=== PATIENT | male | born 1985 | race Two or more races ===

== ENCOUNTER 2025-04-11 17:09 | Emergency (ER) | payer MEDICAID ==
[~2025-04-11] VITALS: Ht 175.3 cm; Wt 81.6 kg
[2025-04-11 17:10] VITALS: BP 106/57; TEMP 98.6
[2025-04-11] MEDS ORDERED: AMOX500T2 PO (17:26)
[2025-04-11] MEDS ORDERED: CIPR7.5D9 EACH EAR (17:26)
[2025-04-11 17:31] VITALS: O2SAT 98
== END 2025-04-11 17:32 | disposition home or self-care (01) ==
LOC: ER 17:14
DX: H66.91 Otitis media, unspecified, right ear (principal); H60.91 Unspecified otitis externa, right ear; Z88.6 Allergy status to analgesic agent